=== PATIENT | male | born 1930 | race Caucasian/White ===

== ENCOUNTER 2016-08-28 16:52 | Inpatient (IN) | payer MEDICARE, BC ==
[~2016-08-28] VITALS: Ht 185.4 cm; Wt 59.3 kg
[~2016-08-28 16:52] MED LIST: ALLOPURINOL300 MG PO; ASPIRIN E.C. 8181 MG PO; BACTRIM DS 8001 TAB PO; CLEOCIN HCL300 MG PO; COLACE 100100 MG/CAP PO; CORDARONE200 MG/TAB PO; CRESTOR 10MG10 MG PO; DOXYCYCLINE 10100 MG; ELIQUIS 5MG PO; FERROUSAL325 MG PO; FISH OIL CONC1000 MG PO; FLOMAX 0.40.4 MG/CAP PO; I-VITE; I-VITE LUTEIN1 TAB PO; KLOR-CON 1010 MEQ PO; LASIX 20MG TABL20 MG PO; LASIX 40MG TABL40 MG PO; LOPRESSOR 225 MG/TAB PO; LOPRESSOR100 MG PO; MELAT3MGTAB PO; MULTI VITAMINS1 TAB PO; NEULASTA 66 MG/0.6 M SC; PRINIVIL2.5 MG PO; PROPRANOLOL10 MG PO; RITUXAN 50500 MG/50 IV; TOPROL XL 50MG50 MG PO; TOPROL XL100 MG PO; TREANDA IV; XANAX 0.5MG0.5 MG PO; ZOVIRAX400 MG PO
[2016-08-28 17:42] LABS: MEAN CELL VOLUME 99 fl (80.0-100.0); MEAN CORPUSCULAR HGB CONC 33 g/dl (33.0-37.0); PLATELET COUNT 260 K/mm3 (130-400); RED BLOOD COUNT 3.25 M/mm3 (4.20-5.60); REDCELL DISTRIBUTION WIDTH-CV 18.6 % (11.5-14.5); WHITE BLOOD COUNT 5.3 K/mm3 (4.8-10.8)
[2016-08-28 17:43] LABS: ADD PATHOLOGY DIFF REVIEW NO; HEMATOCRIT 32.2 % (42.0-52.0); HEMOGLOBIN 10.7 g/dl (13.5-18.0); MEAN CORPUSCULAR HEMOGLOBIN 33 pg (27.0-31.0)
[2016-08-28 17:44] LABS: INR 1.7 (0.8-3.0); PROTHROMBIN TIME 19.4 SECONDS (9.7-12.8)
[2016-08-28 17:47] LABS: PARTIAL THROMBOPLASTIN TIME 36.3 SECONDS (26.0-37.0)
[2016-08-28 17:59] LABS: ADJUSTED CALCIUM 9.6 mg/dL (8.4-10.2); ALBUMIN 3.9 gm/dL (3.5-5.0); BILIRUBIN,TOTAL 0.9 mg/dL (0.0-1.0); C-REACTIVE PROTEIN 0.7 mg/dL (0.0-0.9); CALCIUM 9.5 mg/dL (8.4-10.2); CREATININE, serum 0.94 mg/dL (0.66-1.25); TOTAL PROTEIN 6.9 gm/dL (6.4-8.2)
[2016-08-28 18:00] LABS: ANISOCYTOSIS 1+; BAND 7 % (0-10); METAMYELOCYTE 4 % (0-0); MYELOCYTE 2 % (0-0); NEUTROPHILS 65 % (42.0-75.2); PLATELET ESTIMATE NORMAL (NORMAL); TOTAL CELLS COUNTED 100
[2016-08-28 18:05] LABS: POTASSIUM 2.9 mmol/L (3.4-5.0)
[2016-08-28 18:17] LABS: PH 6 (5-8); SQUAMOUS EPITHELIAL 0-2 /hpf; URINE APPEARANCE Clear; URINE BACTERIA None Seen /hpf; URINE BILIRUBIN Negative (NEGATIVE); URINE BLOOD 1+ (NEGATIVE); URINE COLOR Yellow; URINE GLUCOSE Negative (NEGATIVE); URINE KETONE Negative (NEGATIVE); URINE UROBILINOGEN Negative (NEGATIVE); URINE WBC 0-2 /hpf
[2016-08-28 18:23] LABS: TROPONIN-I 0.072 ng/mL (0.000-0.034)
[2016-08-28 21:18] VITALS: BP 146/94; PULSE 76; TEMP 98.1
[2016-08-28 22:00] VITALS: BP 123/63; PULSE 70; TEMP 98.1
[2016-08-29] VITALS (676 sets, daily range): BP systolic 130–177; BP diastolic 76–107; PULSE 69–87; TEMP 97.5–98.7; O2SAT 42–100
[2016-08-29 05:53] LABS: CALCIUM 9.5 mg/dL (8.4-10.2); CREATININE, serum 0.97 mg/dL (0.66-1.25)
[2016-08-29 05:54] LABS: POTASSIUM 2.9 mmol/L (3.4-5.0)
[2016-08-29 06:11] LABS: TROPONIN-I 0.094 ng/mL (0.000-0.034)
[2016-08-30] VITALS (701 sets, daily range): BP systolic 117–156; BP diastolic 70–90; PULSE 69–80; TEMP 96.9–98.7; O2SAT 36–100
[2016-08-30 05:43] LABS: POTASSIUM 3.5 mmol/L (3.4-5.0)
[2016-08-30 07:42] LABS: MEAN CELL VOLUME 101 fl (80.0-100.0); MEAN CORPUSCULAR HGB CONC 33 g/dl (33.0-37.0); MEAN PLATELET VOLUME 10.4 fl (7.4-10.4); PLATELET COUNT 237 K/mm3 (130-400); RED BLOOD COUNT 2.86 M/mm3 (4.20-5.60); REDCELL DISTRIBUTION WIDTH-CV 18.6 % (11.5-14.5); WHITE BLOOD COUNT 5.4 K/mm3 (4.8-10.8)
[2016-08-30 07:44] LABS: HEMOGLOBIN 9.5 g/dl (13.5-18.0); MEAN CORPUSCULAR HEMOGLOBIN 33 pg (27.0-31.0)
[2016-08-30 07:45] LABS: ADD PATHOLOGY DIFF REVIEW NO
[2016-08-30 07:54] LABS: ADJUSTED CALCIUM 9.8 mg/dL (8.4-10.2); ALBUMIN 3.7 gm/dL (3.5-5.0); BILIRUBIN,TOTAL 0.7 mg/dL (0.0-1.0); CALCIUM 9.6 mg/dL (8.4-10.2); CREATININE, serum 1.08 mg/dL (0.66-1.25); TOTAL PROTEIN 6.5 gm/dL (6.4-8.2)
[2016-08-30 08:30] LABS: BAND 6 % (0-10); MYELOCYTE 1 % (0-0); NEUTROPHILS 82 % (42.0-75.2); PLATELET ESTIMATE NORMAL (NORMAL); TOTAL CELLS COUNTED 100
[2016-08-31 03:52] LABS: PH 6 (5-8); SQUAMOUS EPITHELIAL 0-2 /hpf; URINE APPEARANCE Clear; URINE BACTERIA None Seen /hpf; URINE BILIRUBIN Negative (NEGATIVE); URINE BLOOD 1+ (NEGATIVE); URINE COLOR Yellow; URINE GLUCOSE Negative (NEGATIVE); URINE KETONE Negative (NEGATIVE); URINE UROBILINOGEN Negative (NEGATIVE); URINE WBC 0-2 /hpf
[2016-08-31 08:37] VITALS: BP 158/88; PULSE 76; TEMP 96.4
[2016-08-31 12:16] VITALS: BP 128/80; PULSE 74; TEMP 97
[2016-08-31 17:34] VITALS: BP 125/86; PULSE 91; TEMP 97
[2016-08-31 19:37] VITALS: BP 148/71; PULSE 65; TEMP 97.4
[2016-09-01 04:42] VITALS: BP 119/105; TEMP 97
[2016-09-01 08:22] VITALS: BP 127/71; PULSE 77; TEMP 96.6
[2016-09-01] MEDS ORDERED: DULCOLAX S10 MG/SUPP RC (10:06)
[2016-09-01] MEDS ORDERED: ZOFRAN ODT8 MG PO (10:06)
[2016-09-01] MEDS ORDERED: ROXANOL 20MG20 MG/ML PO (10:07)
[2016-09-01] MEDS ORDERED: LORAINT PO (10:07)
[2016-09-01] MEDS ORDERED: LIQUIFILM TEARS15 ML OU (10:07)
[2016-09-01 11:39] VITALS: BP 119/64; PULSE 82; TEMP 96.6
== END 2016-09-01 14:26 | disposition hospice, inpatient (51) | DRG 947 ==
LOC: COL.ER 16:52 → IMCU 19:16 → ICU 19:16 → IMCU 08-29 06:10 → MEDICAL 08-30 15:45
PROVIDERS: Emergency Medicine; Internal Medicine; Nurse Practitioner Family
DX: R41.82 Altered mental status, unspecified (principal); E43 Unspecified severe protein-calorie malnutrition; I50.22 Chronic systolic (congestive) heart failure; J90 Pleural effusion, not elsewhere classified; Z68.1 Body mass index [BMI] 19.9 or less, adult; Z51.5 Encounter for palliative care; Z66 Do not resuscitate; I11.0 Hypertensive heart disease with heart failure; E87.6 Hypokalemia; Z95.0 Presence of cardiac pacemaker; I25.5 Ischemic cardiomyopathy; I25.10 Atherosclerotic heart disease of native coronary artery without angina pectoris; I08.0 Rheumatic disorders of both mitral and aortic valves; I48.0 Paroxysmal atrial fibrillation; Z95.1 Presence of aortocoronary bypass graft; Z85.72 Personal history of non-Hodgkin lymphomas; Z87.891 Personal history of nicotine dependence; Z86.11 Personal history of tuberculosis; Z95.2 Presence of prosthetic heart valve; Z79.01 Long term (current) use of anticoagulants
CPT/HCPCS: 99223-AI; 99233-AI; 99239; J1630; J1644; J1940; J1953; J3480; J7030; Q9967